=== PATIENT | female | born 1965 | race Caucasian/White ===

== ENCOUNTER 2019-06-04 08:46 | Emergency (ER) | payer MEDICAID ==
[~2019-06-04] VITALS: Ht 162.6 cm; Wt 91.0 kg
[2019-06-04 11:28] VITALS: BP 145/65
== END 2019-06-04 11:29 | disposition home or self-care (01) ==
LOC: ER 08:46
DX: S83.91XA Sprain of unspecified site of right knee, initial encounter (principal); W50.2XXA Accidental twist by another person, initial encounter; Y93.89 Activity, other specified; Y92.89 Other specified places as the place of occurrence of the external cause; Y99.8 Other external cause status; J45.909 Unspecified asthma, uncomplicated; I50.9 Heart failure, unspecified; E11.9 Type 2 diabetes mellitus without complications; I25.2 Old myocardial infarction; Z90.49 Acquired absence of other specified parts of digestive tract; Z98.890 Other specified postprocedural states; Z91.013 Allergy to seafood; Z91.018 Allergy to other foods
CPT/HCPCS: 73562; 99283

== ENCOUNTER 2019-06-23 18:44 | Emergency (ER) | payer MEDICAID ==
[~2019-06-23] VITALS: Ht 160 cm; Wt 92.0 kg
[2019-06-23] MEDS ORDERED: KETOROLAC 30MG/ML VIAL IM STA (22:59)
[2019-06-24 00:25] VITALS: BP 121/69
== END 2019-06-24 00:27 | disposition home or self-care (01) ==
LOC: ER 18:44
DX: M25.561 Pain in right knee (principal); M19.90 Unspecified osteoarthritis, unspecified site; E11.9 Type 2 diabetes mellitus without complications; I50.9 Heart failure, unspecified; I25.2 Old myocardial infarction; J45.909 Unspecified asthma, uncomplicated; Z91.018 Allergy to other foods; Z90.49 Acquired absence of other specified parts of digestive tract; Z91.013 Allergy to seafood
CPT/HCPCS: 96372; 99283; J1885

== ENCOUNTER 2020-08-11 11:54 | Emergency (ER) | payer MEDICAID ==
[~2020-08-11] VITALS: Ht 154.9 cm; Wt 100.0 kg
[2020-08-11] MEDS ORDERED: PREDNISONE 20MG TABLET PO STA (12:23)
[2020-08-11] MEDS ORDERED: ALBUTEROL (0.083%) 2.5MG/3ML NEB HHN STA (12:23)
[2020-08-11] MEDS ORDERED: IPRATROPIUM BROMIDE (0.02%) 0.5MG/2.5ML NEB HHN STA (12:23)
[2020-08-11 13:07] LABS: BASOPHILS % 0.6 % (0.0-2.0); EOSINOPHILS % 2.7 % (0.0-5.0); HEMATOCRIT. 32.6 % (36.0-48.0); HEMOGLOBIN. 10.4 g/dL (12.0-16.0); MEAN CORPUSCULAR HEMOGLOBIN 25.8 pg (28.0-32.0); MEAN CORPUSCULAR VOLUME 81.1 fL (81.0-99.0); MEAN PLATELET VOLUME 9.6 fl (7.4-10.4); MONOCYTES % 7.7 % (2.0-8.0); PLATELET 352 x1000/uL (130-400); RED BLOOD CELL COUNT 4.02 mill/uL (4.2-5.4); RED CELL DISTRIBUTION WIDTH 16.5 % (11.6-14.6)
[2020-08-11 13:10] LABS: CHLORIDE 108 mEq/L (98-107)
[2020-08-11] MEDS ORDERED: P50 PO (15:25)
[2020-08-11 15:47] VITALS: BP 138/69
== END 2020-08-11 15:47 | disposition home or self-care (01) ==
LOC: ER 11:54
DX: J45.909 Unspecified asthma, uncomplicated (principal); I11.0 Hypertensive heart disease with heart failure; I50.9 Heart failure, unspecified; I25.2 Old myocardial infarction; Z98.890 Other specified postprocedural states; Z90.49 Acquired absence of other specified parts of digestive tract; Z20.822 Contact with and (suspected) exposure to COVID-19
CPT/HCPCS: 36415; 71045; 80053; 83605; 83880; 84484; 85025; 93005; 94640; 99285; C9803; J7512; U0003; Z7610

== ENCOUNTER 2022-06-30 18:45 | Emergency (ER) | payer MEDICAID, OTHER ==
[~2022-06-30] VITALS: Ht 162.6 cm; Wt 62.0 kg
[~2022-06-30 18:45] MED LIST: P50 PO
[2022-06-30 18:56] VITALS: BP 135/78
== END 2022-06-30 23:20 | disposition home or self-care (01) ==
LOC: ER 18:45
DX: S43.402A Unspecified sprain of left shoulder joint, initial encounter (principal); I25.2 Old myocardial infarction; I10 Essential (primary) hypertension; J45.909 Unspecified asthma, uncomplicated; Z91.013 Allergy to seafood; Z91.018 Allergy to other foods; Z98.890 Other specified postprocedural states; Z90.49 Acquired absence of other specified parts of digestive tract; Y93.84 Activity, sleeping; Y93.89 Activity, other specified; Y92.89 Other specified places as the place of occurrence of the external cause; Y99.8 Other external cause status
CPT/HCPCS: 73030; 99283

== ENCOUNTER 2024-02-26 13:59 | Emergency (ER) | payer OTHER ==
[~2024-02-26] VITALS: Ht 154.9 cm; Wt 65.0 kg
[2024-02-26 14:07] VITALS: BP 131/51; PULSE 67; RESP 16; TEMP 98.4; O2SAT 100; O2SAT 97
== END 2024-02-26 18:11 | disposition home or self-care (01) ==
LOC: ER 14:13
DX: M25.572 Pain in left ankle and joints of left foot (principal); J45.909 Unspecified asthma, uncomplicated; E11.9 Type 2 diabetes mellitus without complications; I11.0 Hypertensive heart disease with heart failure; I50.9 Heart failure, unspecified; I25.2 Old myocardial infarction; Z98.890 Other specified postprocedural states; Z90.89 Acquired absence of other organs; Z90.49 Acquired absence of other specified parts of digestive tract; Z91.013 Allergy to seafood; Z91.018 Allergy to other foods
CPT/HCPCS: 73610; 73630; 99284

== ENCOUNTER 2024-07-11 22:51 | Emergency (ER) | payer OTHER ==
[~2024-07-11] VITALS: Ht 165.1 cm; Wt 68.0 kg
[2024-07-11 23:11] VITALS: O2SAT 99
[2024-07-12] MEDS: ACETAMINOPHEN 500MG TABLET PO ONE (03:00)
[2024-07-12] MEDS: ACETAMINOPHEN 500MG TABLET PO NR (03:46)
[2024-07-12 04:26] VITALS: BP 122/68; PULSE 66; RESP 20; TEMP 36.61404; O2SAT 99
== END 2024-07-12 04:27 | disposition home or self-care (01) ==
LOC: ER 22:51
DX: S09.90XA Unspecified injury of head, initial encounter (principal); J45.909 Unspecified asthma, uncomplicated; I10 Essential (primary) hypertension; M19.90 Unspecified osteoarthritis, unspecified site; Z90.89 Acquired absence of other organs; Z98.890 Other specified postprocedural states; Z91.013 Allergy to seafood; Z91.018 Allergy to other foods; Y08.89XA Assault by other specified means, initial encounter; Y93.89 Activity, other specified; Y92.89 Other specified places as the place of occurrence of the external cause; Y99.8 Other external cause status
CPT/HCPCS: 99284

== ENCOUNTER 2024-08-14 19:23 | Emergency (ER) | payer OTHER ==
[~2024-08-14] VITALS: Ht 154.9 cm; Wt 71.0 kg
[2024-08-14 19:42] VITALS: TEMP 37; O2SAT 100
[2024-08-14 21:10] LABS: BASOPHILS % 0.5 % (0.0-2.0); EOSINOPHILS % 1.3 % (0.0-5.0); HEMATOCRIT. 31.7 % (36.0-48.0); HEMOGLOBIN. 10.5 g/dL (12.0-16.0); LYMPHOCYTES % 13.1 % (20.0-50.0); MEAN CORPUSCULAR HEMOGLOBIN 29.9 pg (28.0-32.0); MEAN CORPUSCULAR VOLUME 90.7 fL (81.0-99.0); MEAN PLATELET VOLUME 9.1 fl (7.4-10.4); NEUTROPHILS % 77.1 % (40.0-76.0); PLATELET 274 x1000/uL (130-400); RED CELL DISTRIBUTION WIDTH 15.6 % (11.6-14.6); WHITE BLOOD COUNT 14.9 x1000/uL (4.5-11.0)
[2024-08-14 21:13] LABS: CHLORIDE 104 mEq/L (98-107); POTASSIUM 4.1 mEq/L (3.5-5.1); SODIUM 141 mEq/L (136-145)
[2024-08-14 21:14] LABS: CALCIUM 9.6 mg/dL (8.7-10.4); CARBON DIOXIDE 26 mEq/L (21-32)
[2024-08-14 21:19] LABS: CREATININE 1.2 mg/dL (0.6-1.0); GLUCOSE 155 mg/dL (70-105); UREA NITROGEN BLOOD 26 mg/dL (9-23)
[2024-08-14 21:21] LABS: ALANINE AMINOTRANSFERASE 20 IU/L (10-49); ALBUMIN 4.6 g/dL (3.2-4.8); ASPARTATE AMINOTRANSFERASE 23 IU/L (<34); BILIRUBIN TOTAL 0.2 mg/dL (0.1-1.0); PROTEIN TOTAL 7.3 g/dL (6.0-8.3)
[2024-08-14 21:35] LABS: BILIRUBIN DIRECT < 0.1 mg/dL (<=3.0)
[2024-08-14] MEDS ORDERED: NAPR220C61 MT (23:12)
[2024-08-14] MEDS ORDERED: AMOX1TAB16 MT (23:12)
[2024-08-14] MEDS ORDERED: AMOXICILLIN/POTASSIUM CLAVULANATE 875/125MG TAB PO ONE (23:15)
[2024-08-14] MEDS: AMOXICILLIN/POTASSIUM CLAVULANATE 875/125MG TAB PO NR (23:52)
[2024-08-14] MEDS: IBUPROFEN 600MG TABLET PO ONE (23:52)
[2024-08-14 23:55] VITALS: BP 138/72; PULSE 81; RESP 18; O2SAT 100
== END 2024-08-15 00:01 | disposition home or self-care (01) ==
LOC: ER 19:29
DX: K57.32 Diverticulitis of large intestine without perforation or abscess without bleeding (principal); R10.9 Unspecified abdominal pain; J45.909 Unspecified asthma, uncomplicated; E11.9 Type 2 diabetes mellitus without complications; I10 Essential (primary) hypertension; M19.90 Unspecified osteoarthritis, unspecified site; Z98.890 Other specified postprocedural states; Z91.013 Allergy to seafood; Z91.018 Allergy to other foods
CPT/HCPCS: 36415; 74176; 80048; 80076; 85025; 86850; 86900; 93005; 99284

== ENCOUNTER 2024-11-02 18:25 | Emergency (ER) | payer OTHER ==
[~2024-11-02] VITALS: Ht 162.6 cm; Wt 80.0 kg
[2024-11-02 18:25] VITALS: O2SAT 97
[~2024-11-02 18:25] MED LIST changes: +AMOX1TAB16 MT; +NAPR220C61 MT
[2024-11-02 18:56] VITALS: BP 142/71; PULSE 95; RESP 18; TEMP 36.9; O2SAT 98
[2024-11-02] MEDS ORDERED: ACET-3524 PO (22:26)
== END 2024-11-02 22:30 | disposition home or self-care (01) ==
LOC: ER 18:25
DX: R07.81 Pleurodynia (principal); I10 Essential (primary) hypertension; E11.9 Type 2 diabetes mellitus without complications; J45.909 Unspecified asthma, uncomplicated; Z91.013 Allergy to seafood; Z91.018 Allergy to other foods; Z79.899 Other long term (current) drug therapy; Z98.890 Other specified postprocedural states; W18.30XA Fall on same level, unspecified, initial encounter; Y93.89 Activity, other specified; Y92.89 Other specified places as the place of occurrence of the external cause; Y99.8 Other external cause status
CPT/HCPCS: 71101; 72040; 99284

== ENCOUNTER 2024-11-10 09:44 | Emergency (ER) | payer OTHER ==
[~2024-11-10] VITALS: Ht 160 cm; Wt 62.0 kg
[~2024-11-10 09:44] MED LIST changes: +ACET-3524 PO
[2024-11-10 09:47] VITALS: O2SAT 99
[2024-11-10] MEDS: ACETAMINOPHEN 325MG TABLET PO ONE (10:33)
[2024-11-10] MEDS ORDERED: IBUP-2029 MT (11:35)
[2024-11-10 11:42] VITALS: BP 152/73; PULSE 98; RESP 16; TEMP 37; O2SAT 99
[2024-11-19] MEDS ORDERED: TOPUD PO (08:10)
[2024-11-19] MEDS ORDERED: MONT-46 PO (08:10)
[2024-11-19] MEDS ORDERED: ALBU2.5V13 NEB (08:10)
[2024-11-19] MEDS ORDERED: ASPI-1497 MT (08:10)
[2024-11-19] MEDS ORDERED: IBUP-2029 MT (08:10)
[2024-11-19] MEDS ORDERED: LOPHC2 MT (08:10)
[2024-11-19] MEDS ORDERED: LISI20TA31 MT (08:10)
[2024-11-19] MEDS ORDERED: LIP40 PO (08:10)
[2024-11-19] MEDS ORDERED: MULT-1203 MT (08:10)
== END 2024-11-10 11:44 | disposition home or self-care (01) ==
LOC: ER 09:44
DX: M25.561 Pain in right knee (principal); R07.89 Other chest pain; I25.2 Old myocardial infarction; I10 Essential (primary) hypertension; E11.9 Type 2 diabetes mellitus without complications; J45.909 Unspecified asthma, uncomplicated; Z91.013 Allergy to seafood; Z91.018 Allergy to other foods; Z79.899 Other long term (current) drug therapy; Z90.49 Acquired absence of other specified parts of digestive tract; Z98.890 Other specified postprocedural states; W18.30XA Fall on same level, unspecified, initial encounter; Y93.89 Activity, other specified; Y92.89 Other specified places as the place of occurrence of the external cause; Y99.8 Other external cause status
CPT/HCPCS: 71045; 73562; 99284

== ENCOUNTER 2025-03-14 19:57 | Emergency (ER) | payer OTHER ==
[~2025-03-14] VITALS: Ht 152.4 cm; Wt 98.0 kg
[~2025-03-14 19:57] MED LIST changes: -ACET-3524 PO; +ALBU18HF2 PO; +AMLO5TAB88 PO; -AMOX1TAB16 MT; +APIX5TAB PO; +ASPI-1497 MT; +ATEN50TA PO; +BRIM15DR2 EACHEYE; +BUDE6HFA IH; +CETI10TA6 PO; +CHLO25TA2 PO; +DIPH-1205 PO; +DULO30CA52 PO; +FLUT16SP15; +HYDR50TA PO; +LIP40 PO; +LISI20TA31 MT; +METF-415 PO; +METO100T16 PO; +MONT-39 PO; +MULT-1203 MT; -NAPR220C61 MT; +OMEG-221 PO; -P50 PO
[2025-03-14 20:29] VITALS: BP 178/65; PULSE 65; RESP 16; TEMP 36.6; O2SAT 99
[2025-03-14] MEDS ORDERED: OFLO5DRO4 EACH EAR (23:34)
== END 2025-03-14 23:48 | disposition home or self-care (01) ==
LOC: ER 19:57
DX: H60.90 Unspecified otitis externa, unspecified ear (principal); E11.9 Type 2 diabetes mellitus without complications; I11.0 Hypertensive heart disease with heart failure; J45.909 Unspecified asthma, uncomplicated; I50.9 Heart failure, unspecified; Z79.899 Other long term (current) drug therapy
CPT/HCPCS: 99283

== ENCOUNTER 2025-04-13 13:05 | Emergency (ER) | payer OTHER ==
[~2025-04-13] VITALS: Ht 149.9 cm; Wt 92.0 kg
[~2025-04-13 13:05] MED LIST changes: +OFLO5DRO4 EACH EAR
[2025-04-13] MEDS: IPRATROPIUM/ALBUTEROL 0.5-3(2.5)MG/3ML NEB HHN ONE (16:56)
[2025-04-13 17:00] VITALS: PULSE 76; RESP 18; O2SAT 99
[2025-04-13] MEDS ORDERED: METH4TAB95 MT (17:11)
[2025-04-13 17:17] VITALS: BP 121/65; PULSE 72; RESP 15; TEMP 37; O2SAT 98
== END 2025-04-13 17:17 | disposition home or self-care (01) ==
LOC: ER 13:05
DX: R06.02 Shortness of breath (principal); E11.9 Type 2 diabetes mellitus without complications; I11.0 Hypertensive heart disease with heart failure; I50.9 Heart failure, unspecified; J45.909 Unspecified asthma, uncomplicated; M19.90 Unspecified osteoarthritis, unspecified site; Z76.0 Encounter for issue of repeat prescription; Z79.01 Long term (current) use of anticoagulants; Z79.51 Long term (current) use of inhaled steroids; Z79.82 Long term (current) use of aspirin; Z79.899 Other long term (current) drug therapy; Z90.49 Acquired absence of other specified parts of digestive tract; Z90.89 Acquired absence of other organs
CPT/HCPCS: 71045; 94640; 99283; Z7610 ×2; 94070; 94664

== ENCOUNTER 2025-05-19 13:34 | Emergency (ER) | payer OTHER ==
[~2025-05-19] VITALS: Ht 149.9 cm; Wt 95.0 kg
[~2025-05-19 13:34] MED LIST changes: +METH4TAB95 MT
[2025-05-19 13:42] VITALS: O2SAT 99
[2025-05-19 17:07] VITALS: BP 120/50; PULSE 80; RESP 13; TEMP 36.9; O2SAT 100
== END 2025-05-19 17:08 | disposition home or self-care (01) ==
LOC: ER 14:06
DX: M75.102 Unspecified rotator cuff tear or rupture of left shoulder, not specified as traumatic (principal); E11.9 Type 2 diabetes mellitus without complications; I11.0 Hypertensive heart disease with heart failure; I50.9 Heart failure, unspecified; J45.909 Unspecified asthma, uncomplicated; Z79.01 Long term (current) use of anticoagulants; Z79.51 Long term (current) use of inhaled steroids; Z79.82 Long term (current) use of aspirin; Z90.49 Acquired absence of other specified parts of digestive tract; Z90.89 Acquired absence of other organs; Z79.899 Other long term (current) drug therapy
CPT/HCPCS: 73030; 93971; 99284

== ENCOUNTER 2025-06-09 10:57 | Emergency (ER) | payer MEDICAID, OTHER ==
[~2025-06-09] VITALS: Ht 149.9 cm; Wt 96.0 kg
[2025-06-09 11:06] VITALS: O2SAT 99
[2025-06-09 11:39] LABS: BASOPHILS % 0.6 % (0.0-2.0); EOSINOPHILS % 3.0 % (0.0-5.0); HEMATOCRIT. 35.2 % (36.0-48.0); HEMOGLOBIN. 11.5 g/dL (12.0-16.0); LYMPHOCYTES % 18.2 % (20.0-50.0); MEAN PLATELET VOLUME 9.5 fl (7.4-10.4); MONOCYTES % 7.6 % (2.0-8.0); NEUTROPHILS % 70.6 % (40.0-76.0); PLATELET 212 x1000/uL (130-400); RED BLOOD CELL COUNT 4.06 mill/uL (4.2-5.4); RED CELL DISTRIBUTION WIDTH 17.3 % (11.6-14.6)
[2025-06-09 11:56] LABS: CREATININE 1.0 mg/dL (0.6-1.0); UREA NITROGEN BLOOD 22.0 mg/dL (9-23)
[2025-06-09 11:59] LABS: TROPONIN I HIGH SENSITIVITY 28 ng/L (3.0-34)
[2025-06-09] MEDS: MORPHINE SULFATE 4 MG/ML INJ (FOR IV/IM USE) IV ONE (12:30)
[2025-06-09 13:53] VITALS: BP 156/72; PULSE 78; RESP 15; TEMP 37; O2SAT 100
== END 2025-06-09 14:14 | disposition short-term general hospital (02) ==
LOC: ER 11:13 → CANBEDREQ 12:20 → ER 14:14
DX: R07.2 Precordial pain (principal); E11.9 Type 2 diabetes mellitus without complications; I11.9 Hypertensive heart disease without heart failure; I50.9 Heart failure, unspecified; I25.2 Old myocardial infarction; J45.909 Unspecified asthma, uncomplicated; M19.90 Unspecified osteoarthritis, unspecified site; Z98.890 Other specified postprocedural states; Z90.89 Acquired absence of other organs; Z90.49 Acquired absence of other specified parts of digestive tract; Z79.899 Other long term (current) drug therapy; Z79.82 Long term (current) use of aspirin; Z79.51 Long term (current) use of inhaled steroids; Z79.01 Long term (current) use of anticoagulants
CPT/HCPCS: 80048; 85025; 84484; 36415; 71045; 70450; 93005; 99285; Z7610; J2270